=== PATIENT | female | born 1950 | race African-American/Black ===

== ENCOUNTER 2023-12-26 09:36 | Emergency (ER) | payer MEDICARE ==
[2023-12-26] MEDS ORDERED: ACETAMINOPHEN 500 MG TAB ONE (10:20)
[2023-12-26] MEDS ORDERED: methocarbamoL 500 MG TAB ONE (10:20)
[2023-12-26] MEDS ORDERED: LIDOCAINE 4% PATCH ONE (10:20)
[2023-12-26 10:29] LABS: Absolute Eosinophils 0.2 K/uL (0-0.5); Absolute Monocytes 0.5 K/uL (0.1-1.3); Absolute Neutrophil 4.5 K/uL (1.8-8.0); Basophils % 0.5 % (0-1.3); Eosinophils % 2.7 % (0-4.4); Hematocrit 36.6 % (36.0-45.0); Hemoglobin 11.9 g/dL (12.0-15.0); Lymphocytes % 27.8 % (15.3-44.8); MCH 28.9 pg (27.0-35.0); MCHC 32.4 g/dL (32.0-36.0); MCV 89.1 fL (80-100); Monocytes % 6.8 % (3.3-12.3); Neutrophils % 62.2 % (41.7-73.7); Platelets 193 thou/uL (152-406); RBC Red Blood Cell Count 4.11 M/uL (3.86-4.86); Red Cell Distribution Width 13.6 % (12.1-15.2)
[2023-12-26 10:31] LABS: PT Prothrombin Time 11.4 SECONDS (9.4-12.5); Protime INR 1.04
[2023-12-26 10:46] LABS: Anion Gap 4.9 mEq/L (5.0-15.0); Potassium 3.9 mEq/L (3.5-5.1); Troponin High Sensitivity 5.5 pg/mL (<58.9)
--- NOTE | 2023-12-26 11:29 | EDPHYS ---
Physician Documentation [facility] Name: Imelda Brennan Age: 73 yrs Sex: Female : 1950 Arrival Date: 12/26/2023 Time: 09:36 Bed 13 Private MD: ED Physician Angel Carney HPI: 12/25 10:08 This 73 yrs old Black Female presents to ER via Unassigned with complaints of Shortness ec2 Of Breath, Back Pain. 10:08 Patient arrives today for right upper back pain. Patient reports that the pain is ec2 intermittent, worse with positional movements, worsened with deep inhalation and. Patient reports recent cough and cold symptoms as well. Denies any fevers or chills, no nausea or vomiting. Patient reports she has no significant medical problems, denies taking medications. No history of blood clots.. Historical: - Allergies: 10:08 No Known Allergies; hb - Home Meds: 10:08 None [Active]; hb - PMHx: 10:08 None; hb - PSHx: 10:08 section; hb - Immunization history:: Adult Immunizations up to date. - Infectious Disease History:: Denies. - Social history:: Smoking status: Patient denies any tobacco usage or history of. ROS: 10:08 Constitutional: as per hpi ec2 Exam: 10:08 Constitutional: GEN: NAD Head: atraumatic Eyes: EOMI Ears: External ears are ec2 normal. CV: regular rate LUNGS: no respiratory distress ABD: non-distended SKIN: no evidence of rashes MSK: Reproducible right upper back chest wall TTP without deformity or crepitus appreciated. NEURO: moves all extremities equally Vital Signs: 10:06 BP 147 / 54; Pulse 52; Resp 14; Temp 97.3(TE); Pulse Ox 100% on R/A; Weight 58.97 kg; hb Height 5 ft. 2 in. ; Pain 5/10; 10:52 BP 139 / 53; Pulse 48; Resp 20 S; Pulse Ox 99% on R/A; kc6 11:53 BP 127 / 52; Pulse 55; Resp 18 S; Pulse Ox 99% on R/A; kc6 10:06 Body Mass Index 23.78 (58.97 kg, 157.48 cm) hb 10:06 Pain Scale: Adult hb MDM: 09:40 Patient medically screened. ec2 10:08 Data reviewed: vital signs. ED course: Patient arrives today for evaluation of right ec2 upper back pain. Examination markable for reproducible thoracic wall TTP without deformities or crepitus. Will obtain lab work, D-dimer, EKG, chest x-ray. Differential diagnosis includes musculoskeletal sprain given recent cough and cold symptoms, ACS, doubt PE or dissection.. 10:10 ED course: EKG obtained, independently reviewed and interpreted by me, shows atrial ec2 fibrillation, rate of 49, no acute ST segment elevations, intervals are nonconcerning.. 11:02 ED course: Metabolic profile shows reassuring electrolytes and renal function. CBC is ec2 reassuring. D-dimer is within normal ranges. BNP and troponin within normal ranges as well. . 11:23 ED course: Chest x-ray independently reviewed and interpreted by me. On reassessment ec2 patient is well-appearing no acute distress. Patient with atrial fibrillation noted on EKG, no reported history of atrial fibrillation. Patient without any acute complications, no evidence of heart failure, other underlying process actively causing her atrial fibrillation, patient is not symptomatic, patient has appropriate hemodynamics. I discussed inpatient versus outpatient management, will start the patient on anticoagulation and have her follow-up with cardiology.. 11:37 ED course: Given the patient's weight, started patient on 2.5 mg twice daily of ec2 apixaban as opposed to the typical 5 mg twice daily.. 12/25 10:07 Order name: Basic Metabolic Panel; Complete Time: 11: ec2 12/25 10:07 Order name: CBC with Diff; Complete Time: 11: ec2 12/25 10:07 Order name: D-Dimer; Complete Time: 11: ec2 12/25 10:07 Order name: NT PRO-BNP; Complete Time: 11: ec2 12/25 10:07 Order name: Troponin HS; Complete Time: 11: ec2 12/25 10:24 Order name: Protime (+INR); Complete Time: 10:31 EDMN 12/25 10:07 Order name: XRAY Chest (1 view) ec2 12/25 10:07 Order name: Cardiac monitoring; Complete Time: 10:19 ec2 12/25 10:07 Order name: EKG - Nurse/Tech; Complete Time: 10: ec2 12/25 10:07 Order name: IV Saline Lock; Complete Time: 10: ec2 12/25 10:07 Order name: Labs collected and sent; Complete Time: : ec2 12/25 10:07 Order name: O2 Per Protocol; Complete Time: : ec2 12/25 10:07 Order name: O2 Sat Monitoring; Complete Time: 10: ec2 Administered Medications: 10:27 Drug: Methocarbamol PO 500 mg PO once Route: PO; kc6 11:53 Follow up: Response: No adverse reaction; Pain is decreased; RASS: Alert and Calm (0) kc6 10:27 Drug: Acetaminophen PO 1000 mg PO once Route: PO; kc6 11:53 Follow up: Response: No adverse reaction; Pain is decreased kc6 10:27 Drug: Lidoderm Topical Patch 5 % (700 mg/patch) 1 patches Topical once; leave on for 12 kc6 hours; cover most painful area; may cut into smaller pieces {Note: back.} Route: Topical; Site: affected area; 11:53 Follow up: Response: No adverse reaction kc6 Disposition Summary: 12/26/23 11:28 Discharge Ordered Notes: Location: Home ec2 Condition: Stable ec2 Diagnosis - Sprain of ribs ec2 - Dyspnea, unspecified ec2 - Persistent atrial fibrillation ec2 Followup: ec2 - With: Jose Raul Ramos MD - When: - Reason: Recheck today's complaints Discharge Instructions: - Discharge Summary Sheet ec2 - Rib Contusion ec2 - Atrial Fibrillation, [id number] ec2 Forms: - Medication Reconciliation Form ec2 - Antibiotic Education ec2 - Prescription Opioid Use ec2 - Patient Portal Instructions ec2 - Leadership Thank You Letter ec2 Prescriptions: - Eliquis 2.5 mg Oral tablet - take 1 tablet ORAL route 2 times per day; 60 tablet; Refills: 0, Product ec2 Selection Permitted - methocarbamol 500 mg Oral tablet - take 1 tablet ORAL route 4 times per day; 15 tablet; Refills: 0, Product ec2 Selection Permitted Signatures: Dispatcher [employer] Sabrina Randall RN RN hb Campbell, Kaitlyn, RN RN kc6 Angel Carney MD MD ec2 Corrections: (The following items were deleted from the chart) : 10:08 PROTIME (+INR)+[email or web address] ordered. EDMS EDMS
--- NOTE | 2023-12-26 11:29 | ER ---
Nurse's Notes [facility] Name: Imelda Brennan Age: 73 yrs Sex: Female : 1950 Arrival Date: 12/26/2023 Time: 09:36 Bed 13 Private MD: Diagnosis: Sprain of ribs;Dyspnea, unspecified;Persistent atrial fibrillation Presentation: 12/25 10:06 Chief complaint: SOB and right lateral chest pain with breathing since last night, hb cough x 1 week. Coronavirus screen: At this time, the client does not indicate any symptoms associated with coronavirus-19. Ebola Screen: No symptoms or risks identified at this time. Initial Sepsis Screen: Does the patient meet any 2 criteria? No. Patient's initial sepsis screen is negative. Does the patient have a suspected source of infection? No. Patient's initial sepsis screen is negative. Risk Assessment: Do you want to hurt yourself or someone else? Patient reports no desire to harm self or others. Onset of symptoms was December 19, 2023. 10:06 Method Of Arrival: Ambulatory hb 10:06 Acuity: JOE 3 hb Triage Assessment: 10:08 General: Appears in no apparent distress. Behavior is calm, cooperative. Pain: Pain hb currently is 5 out of 10 on a pain scale. Neuro: Level of Consciousness is awake, alert, obeys commands, Oriented to person, place, time, situation. Cardiovascular: Patient's skin is warm and dry. Rhythm is maite. Respiratory: Reports cough that is non-productive, pain with respiration Respiratory effort is even, unlabored, Respiratory pattern is regular, symmetrical, Onset: The symptoms/episode began/occurred last night, the patient has moderate shortness of breath. Historical: - Allergies: 10:08 No Known Allergies; hb - Home Meds: 10:08 None [Active]; hb - PMHx: 10:08 None; hb - PSHx: 10:08 section; hb - Immunization history:: Adult Immunizations up to date. - Infectious Disease History:: Denies. - Social history:: Smoking status: Patient denies any tobacco usage or history of. Screenin:27 [facility] ED Fall Risk Assessment (Adult) History of falling in the last 3 months, kc6 including since admission No falls in past 3 months (0 pts) Confusion or Disorientation No (0 pts) Intoxicated or Sedated No (0 pts) Impaired Gait No (0 pts) Mobility Assist Device Used No (0 pt) Altered Elimination No (0 pt) Score/Fall Risk Level 0 - 2 = Low Risk. Abuse screen: Denies threats or abuse. Denies injuries from another. Nutritional screening: No deficits noted. Tuberculosis screening: No symptoms or risk factors identified. Assessment: 10:27 General: Appears in no apparent distress. comfortable, well groomed, well developed, kc6 Behavior is calm, cooperative, appropriate for age. Pain: Complains of pain in right scapular area and right subscapular area Pain currently is 5 out of 10 on a pain scale. Neuro: Level of Consciousness is awake, alert, obeys commands, Oriented to person, place, time, situation, Appropriate for age. Cardiovascular: Denies chest pain, Heart tones S1 S2 present Capillary refill < 3 seconds Rhythm is atrial fibrillation. Respiratory: Reports shortness of breath on exertion Airway is patent Trachea midline Respiratory effort is even, unlabored, Respiratory pattern is regular, symmetrical, Breath sounds are clear bilaterally. GI: No signs and/or symptoms were reported involving the gastrointestinal system. : No signs and/or symptoms were reported regarding the genitourinary system. EENT: No signs and/or symptoms were reported regarding the EENT system. Derm: No signs and/or symptoms reported regarding the dermatologic system. Skin is intact, is healthy with good turgor, Skin is pink, warm \T\ dry. Musculoskeletal: No signs and/or symptoms reported regarding the musculoskeletal system. Circulation, motion, and sensation intact. Capillary refill < 3 seconds, Range of motion: intact in all extremities. 11:27 Reassessment: Patient appears in no apparent distress at this time. No changes from kc6 previously documented assessment. Patient and/or family updated on plan of care and expected duration. Pain level reassessed. Patient is alert, oriented x 3, equal unlabored respirations, skin warm/dry/pink. Patient states feeling better. Patient states symptoms have improved. Vital Signs: 10:06 BP 147 / 54; Pulse 52; Resp 14; Temp 97.3(TE); Pulse Ox 100% on R/A; Weight 58.97 kg; hb Height 5 ft. 2 in. ; Pain 5/10; 10:52 BP 139 / 53; Pulse 48; Resp 20 S; Pulse Ox 99% on R/A; kc6 11:53 BP 127 / 52; Pulse 55; Resp 18 S; Pulse Ox 99% on R/A; kc6 10:06 Body Mass Index 23.78 (58.97 kg, 157.48 cm) hb 10:06 Pain Scale: Adult hb ED Course: 09:40 Patient arrived in ED. ec2 09:40 Angel Carney MD is Attending Physician. ec2 09:59 Yanna Browning RN is Primary Nurse. kc6 10:08 Triage completed. hb 10:08 Arm band placed on. hb 10:27 Patient has correct armband on for positive identification. Placed in gown. Bed in low kc6 position. Call light in reach. Side rails up X2. Adult w/ patient. monitoring and evaluation advisor on. Pulse ox on. NIBP on. Warm blanket given. Pillow given. 10:27 Inserted saline lock: 22 gauge in right antecubital area, using aseptic technique. kc6 Blood collected. 10:34 XRAY Chest (1 view) In Process Unspecified. EDMS 11:28 Jose Raul Ramos MD is Referral Physician. ec2 11:53 No provider procedures requiring assistance completed. IV discontinued, intact, kc6 bleeding controlled, No redness/swelling at site. Pressure dressing applied. 11:54 Provided Education on: atrial fibrillation and eliquis. kc6 Administered Medications: 10:27 Drug: Methocarbamol PO 500 mg PO once Route: PO; kc6 11:53 Follow up: Response: No adverse reaction; Pain is decreased; RASS: Alert and Calm (0) kc6 10:27 Drug: Acetaminophen PO 1000 mg PO once Route: PO; kc6 11:53 Follow up: Response: No adverse reaction; Pain is decreased kc6 10:27 Drug: Lidoderm Topical Patch 5 % (700 mg/patch) 1 patches Topical once; leave on for 12 kc6 hours; cover most painful area; may cut into smaller pieces {Note: back.} Route: Topical; Site: affected area; 11:53 Follow up: Response: No adverse reaction kc6 Medication: 11:54 VIS not applicable for this client. kc6 Outcome: 11:28 Discharge ordered by . ec2 11:53 Discharged to home ambulatory, kc6 11:53 Condition: improved 11:53 Discharge instructions given to patient, Instructed on discharge instructions, follow up and referral plans. medication usage, Demonstrated understanding of instructions, follow-up care, medications, Prescriptions given X 2, 11:54 Patient left the ED. kc6 Signatures: Dispatcher [employer] EDSabrina Veronica, RN Yanna Irvin RN RN kc6 Angel Carney MD MD ec2
--- NOTE | 2023-12-26 11:40 | RAD REPORT ---
EXAM DESCRIPTION: Tree Single View12/26/2023 10:32 am CLINICAL HISTORY: Chest pain;Dyspnea COMPARISON: No comparisons TECHNIQUE: Portable AP view of the chest. FINDINGS: Subtle right basilar hazy airspace opacity. No pneumothorax or effusion. The cardiomedias tinal contours are unremarkable. IMPRESSION: Subtle right basilar hazy airspace opacity, may reflect atelectasis or early pneumonia.
--- NOTE | 2023-12-26 12:32 | EKG ---
Test Date: 2023-12-26 Test Time: 10:08:00 Gang Tailer: SAILAJA MEASUREMENT RESULTS: Intervals: Rate: 49 DE: QRSD: 82 QT: 448 QTc: 404 [place]: P: DE: QRS: 55 T: 37 INTERPRETIVE STATEMENTS: Atrial fibrillation Abnormal ECG No previous ECG available for comparison Electronically Signed On 12-26-23 12:31:35 CDT by Jose Raul Ramos
[2023-12-26 12:40] VITALS: BP 127/52; TEMP 97.3; O2SAT 99
== END 2023-12-26 11:54 | disposition home or self-care (01) ==
LOC: ER 09:36
DX: S23.41XA Sprain of ribs, initial encounter (principal); R06.00 Dyspnea, unspecified; I48.19 Other persistent atrial fibrillation
CPT/HCPCS: 93005; 85025; 80048; 36415; 85610; 85379; 84484; 83880; 71045; 99284; J2001